=== PATIENT | female | born 1960 ===

== ENCOUNTER 2017-10-17 05:11 | Inpatient (IN) | payer OTHER ==
[~2017-10-17] VITALS: Ht 157.4 cm; Wt 58.2 kg
--- NOTE | ~2017-10-17 | PR ---
[place], [place] PROGRESS NOTE NAME: ABDULAZIZ SCOTT UNIT #: [id number] ROOM: 312 DOCTOR: VALERIA WELLINGTON MD BIRTHDATE: [birth year] DOS: 10/21/2017 CHIEF COMPLAINT: "I don't feel well. My stomach is bothering me." SUMMARY OF THE VISIT: The patient was interviewed in her room and then walked down the short with me. She continues to be depressed and reports poor sleep. She wakes up tired in the morning. She continues to be nihilistic and believes that she has HIV and that her family has kicked her out. Reality shows that the family states that she has had several HIV tests all have come back negative. Her test here just came back negative as well. Family also reports that she was not kicked out that rather she left on her own accord and began wandering the streets. She is not homeless like she states. This is all part of her nihilistic delusion. MENTAL STATUS: She is alert and oriented. She remains depressed with extreme nihilism and delusions. Memory is intact. PLAN: I will load her with Invega Sustenna 234 mg IM today and increase her Remeron from 15-22.5 mg at bedtime in order to further combat her depressive symptomatology. Engage in individual and myers milieu activity, returning to the least restrictive environment when stable. VALERIA WELLINGTON MD CM:PNTRANS [phone] VALERIA WELLINGTON MD 10/21/17 0950 interface
--- NOTE | ~2017-10-17 | DS ---
[place], [place] DISCHARGE SUMMARY [id number] UNIT #: [id number] ROOM: 312 DOCTOR: VALERIA WELLINGTON MD BIRTHDATE: [birth year] DOS: 10/29/2017 CHIEF COMPLAINT: "I have AIDS and I have been so depressed." HISTORY OF PRESENT ILLNESS: This is a 57-year-old white female who had initially presented to [facility] Emergency Room accompanied by police. The police apparently found the patient sitting in a ditch. She told the police that she was homeless and had nowhere to go. This she said was after an argument with her sister. She believed that because she has AIDS, her sister was fired from her job and she was now homeless and wandering the streets. The patient had reported to the police and later to the Emergency Room physicians that she has been increasingly depressed over the last several weeks with poor sleep and appetite, anergia, anhedonia, hopeless, helpless feelings, crying spells and inability to cope. Most recently, she has had suicidal plans to overdose or cut her wrist. [facility] did send her to the [facility] unit on an involuntary basis to receive further treatment and evaluation. PAST MEDICAL HISTORY: Remarkable for a long history of bipolar disorder, hyperlipidemia, hypertension and psoriasis. SUMMARY OF HOSPITAL COURSE: The patient was admitted to the unit where she was started on Remeron 15 mg at bedtime as well as Vraylar 1.5 mg at bedtime. However, given the severity of her psychotic symptoms, the Vraylar was discontinued and she was switched to Invega 6 mg in the morning. The patient tolerated these well and after several days of Invega 6 mg in the morning, she was loaded with Invega Sustenna 234 mg IM. The patient was also found to have a low vitamin D level upon admission of 14.1, so she was augmented with vitamin D 50,000 International Units weekly. We did test for HIV here and also reached out to the patient's sister. The patient's sister said that the patient has had several HIV tests, all have been negative. The HIV test done by [facility] likewise was negative. Despite attempting to confront the patient on this, she initially responded to these tests were wrong and that she knew she had AIDS. Gradually, as the Invega began to take hold this belief dissipated and totally left her. She did respond extremely well with Invega Sustenna and the Remeron, sleep and appetite normalized. She did become much more engaging in activities. The major part of her latter part of the stay was regarding housing. Initially, it was believed that the sister would take the patient back, but later the sister said that she was unable to and wanted us to seek out alternative placements. Because these alternative placements seem to all have a lengthy waiting list and the patient had improved sufficiently, it was decided to return the patient either to her sister briefly or to the [facility] [place]. MENTAL STATUS AT DISCHARGE: The patient was alert and oriented x 3. Mood was euthymic. Affect appropriate. There was no barbara or hypomania. Her delusional system had dissipated completely. Memory for the most part was fully intact. FINAL DIAGNOSES: Major depression, recurrent with psychotic features. [place], [place] DISCHARGE SUMMARY NAME: ABDULAZIZ SCOTT UNIT #: [id number] ROOM: [facility] DOCTOR: VALERIA WELLINGTON MD BIRTHDATE: [birth year] PLAN: All of her prescriptions have been e scribed to [facility] on [facility] in [place], except her vitamin D prescription which was printed and will be sent with her. She will have followup in the [place] area with her outpatient provider. VALERIA WELLINGTON MD CM:DISCHAGUILAR [id number] VALERIA WELLINGTON MD 10/29/17 1023 interface
--- NOTE | ~2017-10-17 | PR ---
[place], [place] PROGRESS NOTE NAME: ABDULAZIZ SCOTT UNIT #: [id number] ROOM: 312 DOCTOR: VALERIA WELLINGTON MD BIRTHDATE: [birth year] DOS: 10/23/2017 CHIEF COMPLAINT: "I still think I have AIDS." SUMMARY OF THE VISIT: The patient was interviewed as she was walking down the hallway. She engaged readily in conversation with me. She did appear somewhat brighter. She was very conversant and she was very engaging. She still reports that she believes she still has aids and she is not certain whether or not she will be able to be welcome in her sister's home. She to us reaching out to talk to her sister. She was somewhat hesitant because it was going to be a long distance call, but I did reassure her that we would be able to take care of this for her. Of note, she seems to be tolerating the medication regimen well. I see no sedation, somnolence, extrapyramidal symptoms or tardive dyskinesia. She is due for her secondary loading dose of Invega Sustenna on 10/24/2017. I will order her maintenance dose then to be given on 11/19/2017. MENTAL STATUS: She is alert and oriented. She does seem to be trending towards euthymia. Affect is more appropriate. She still remains delusional, but she is able to be moved a little bit and questions the validity of some of her thoughts. For the most part, memory is intact. PLAN: As mentioned previously, she will get her secondary loading dose of Invega Sustenna 156 mg on 10/24 and then thereafter receive her next dose of Invega Sustenna 156 mg on 11/19 and every 4 weeks thereafter. We will continue the Remeron at its current dose, engage in individual and myers milieu activity, returning to the least restrictive environment when psychiatrically stable. VALERIA WELLINGTON MD CM:PNTRANS 1019 VALERIA WELLINGTON MD 10/23/17 1017 interface
--- NOTE | ~2017-10-17 | PR ---
[place], [place] PROGRESS NOTE NAME: ABDULAZIZ SCOTT UNIT #: [id number] ROOM: 312 DOCTOR: VALERIA WELLINGTON MD BIRTHDATE: [birth year] DOS: 10/28/2017 CHIEF COMPLAINT: "I need to figure out where I am living. My sister does not want me back." SUMMARY OF THE VISIT: The patient was interviewed in the dining area. She engaged in very purposeful conversation. She was very fixated on finding a place to stay, stating that her sister has now voiced to both patient and our social sciences instructor that she does not want the patient back and prefers the patient to go either into a long term or to assisted living. She was very much fixated on what can be done along these lines. She convincingly denied any thoughts of having AIDS. There were no psychotic symptoms. There was no paranoia. She was very much engaging in normal conversation for the first time in her admission. She seemed to be tolerating the current medication regimen well. I see no sedation, somnolence, extrapyramidal symptoms or tardive dyskinesia. MENTAL STATUS: She is alert and oriented times 3. Mood is euthymic. Affect is appropriate. There is no barbara, hypomania or psychosis. Memory for the most part is intact. PLAN: I will maintain her current psychotropic regimen as she is getting benefits without side effects. I will go ahead and discuss the case with social research assistant to finalize discharge plans. At this point, if we are unable to find appropriate housing and the sister does not take the patient back, the patient will have to go back to the [facility]. VALERIA WELLINGTON MD CM:PNTRANS [id number] VALERIA WELLINGTON MD 10/28/17 1013 interface
--- NOTE | ~2017-10-17 | PR ---
[place], [place] PROGRESS NOTE NAME: ABDULAZIZ SCOTT UNIT #: [id number] ROOM: 312 DOCTOR: KEV HERNANDEZ MD BIRTHDATE: [birth year] DOS: 10/19/2017 SUBJECTIVE: The patient seen and spoke with the staff. Per staff, patient is doing better, but still depressed and suicidal. No behavioral problems or issues, medication compliant. The patient was pleasant and cooperative. She was in the day area. She came to talk with me in the interview room. She said that she is taking her medication and did not have any side effect. When I asked her how she is doing, she said that "so-so" "not good." She still believes that she got HIV and concerned about that. She reports good sleep and appetite. MENTAL STATUS EXAMINATION: The patient was pleasant and cooperative, described her mood as "so-so." Affect was constricted. Thought process goal directed. No flight of ideas, loosening of association. She denied auditory or visual hallucinations. She seems to be still delusional related with her HIV, but no other delusions noted. No other paranoia. She denied any suicidal ideation, intent or plan. She also denied any homicidal ideation, intent or plan. Insight and judgment poor to fair. ASSESSMENT: Major depressive disorder, recurrent, severe with questionable psychotic feature. PLAN: 1. Continue current medication and care. 2. Continue redirection. 3. Encourage activity and groups. 4. Pending lab results for human immunodeficiency virus. KEV HERNANDEZ MD CM:PNTRANS [id number] KEV HERNANDEZ MD 10/19/17 2318 interface
--- NOTE | ~2017-10-17 | PR ---
[place], [place] PROGRESS NOTE NAME: ABDULAZIZ SCOTT UNIT #: [id number] ROOM: 312 DOCTOR: KEV HERNANDEZ MD BIRTHDATE: [birth year] DOS: 10/26/2017 SUBJECTIVE: The patient seen and spoke with the staff. Per staff, the patient is doing better. No behavioral problems or issues. Social med compliant. The patient was pleasant and cooperative. She was in the day area. She reports doing well. She said that she has not spoke with his sister yet and does not know how she will get there. When I told her about her negative HIV test, she said that she knows about the results, but she will not believe it. MENTAL STATUS EXAMINATION: The patient was pleasant and cooperative. Described her mood as "good." Affect, mood congruent. Thought process goal directed. No flight of ideas, loosening of associations. She denied auditory or visual hallucination. She is still paranoid. She denied any suicidal ideation, intent or plan. She also denied homicidal ideation, intent or plan. Insight and judgment poor to fair. ASSESSMENT: Major depressive disorder, recurrent, severe with psychotic features. PLAN: 1. Continue current medication and care. 2. Continued redirection. 3. Encourage activity and groups. KEV HERNANDEZ MD CM:PNTRANS [phone] KEV HERNANDEZ MD 10/26/172254 interface
--- NOTE | ~2017-10-17 | PR ---
[place], [place] PROGRESS NOTE NAME: ABDULAZIZ SCOTT UNIT #: [id number] ROOM: 312 DOCTOR: VALERIA WELLINGTON MD BIRTHDATE: [birth year] DOS: 10/22/2017 CHIEF COMPLAINT: "I didn't sleep too well, although I have always had problems sleeping." SUMMARY OF THE VISIT: The patient was interviewed in the quiet room. She reported once again that she was having a significant sleep disturbance with difficulty falling asleep and maintaining sleep. She did report to me that she has been told that the HIV test came back negative. She questions the validity of this and still states that she thinks she has AIDS, although, you can tell that she now has the ability to question what reality is. We also discussed at length the possibility that she may be able to return to her sister's house to live there and she would like that very much and also the fact that her sister did not lose her job. These are all fixed beliefs that she had and they are all wavering slightly as she is beginning to question now whether or not this is reality or not. She did question why she received the Invega Sustenna and I reeducated her as to the purpose of the Invega Sustenna versus the oral Invega and she nodded in approval. MENTAL STATUS: She is alert and oriented. Mood does seem to be still depressed, but does seem to be trending towards euthymia. Affect is more appropriate. There is no barbara or hypomania. She still remains delusional, but is able to question the validity of these thoughts. There are no extrapyramidal symptoms or tardive dyskinesia. PLAN: I will order her secondary loading dose of Invega Sustenna 156 mg intramuscularly on 10/24/2017. At that point in time, I will also discontinue her oral Invega. Continue to engage in individual and myers milieu activity, returning to the least restrictive environment when stable. VALERIA WELLINGTON MD CM:PNTRANS [id number] VALERIA WELLINGTON MD 10/22/17 1002 interface
--- NOTE | ~2017-10-17 | PR ---
[place], [place] PROGRESS NOTE NAME: ABDULAZIZ SCOTT UNIT #: [id number] ROOM: 312 DOCTOR: VALERIA WELLINGTON MD BIRTHDATE: [birth year] DOS: 10/24/2017 CHIEF COMPLAINT: "I would like to talk to my sister; I think I am feeling better." SUMMARY OF THE VISIT: The patient was interviewed in the dining area. She had completed her breakfast and was sitting watching television. She engaged readily in conversation, reporting that she is feeling slightly better since she has had a chance to get used to the medicine. She is still somewhat concerned about having the injections and I tried to reassure her that ultimately the injections would be once a month and could ultimately go down to once every 3 months depending on her tolerance to the medicine. She does appear to be able to now question the validity of some of her delusional beliefs. She is tolerating the current medication regimen well and I see no sedation, somnolence, extrapyramidal symptoms or tardive dyskinesia. MENTAL STATUS: She is alert and oriented. Mood does seem to be trending towards euthymia. Affect is more appropriate. There is no barbara or hypomania. There are no overt auditory or visual hallucinations. The delusions do seem to be shaking somewhat. Memory for the most part is intact. PLAN: At this point, I will discontinue her oral Invega as she is receiving her secondary loading dose of the Invega Sustenna, continue to engage in individual and myers milieu activity with the plan to return to the least restrictive environment when psychiatrically stable. VALERIA WELLINGTON MD CM:PNTRANS [phone] VALERIA WELLINGTON MD 10/24/17 0904 interface
--- NOTE | ~2017-10-17 | PR ---
[place], [place] PROGRESS NOTE NAME: ABDULAZIZ SCOTT UNIT #: [id number] ROOM: 312 DOCTOR: KEV HERNANDEZ MD BIRTHDATE: [birth year] DOS: 10/25/2017 SUBJECTIVE: The patient seen and spoke with the staff. Per staff, the patient is doing well. No behavior problems or issues, medication compliant, slept well. No other concern. The patient was pleasant, cooperative. She is in her room on the bed. She said that she is feeling better with the current medications, she slept well and did not have any side effect from the medication. She reports good appetite. Denied hopelessness or other neurovegetative signs and symptoms of depression. MENTAL STATUS EXAMINATION: Pleasant, cooperative. Described her mood as "better." Affect, mood congruent. Thought process goal directed. No flight of ideas, loosening of association. She denied auditory or visual hallucination. No delusion or paranoia noted. She denied suicidal ideation, intent or plan. She also denied homicidal ideation, intent or plan. PLAN: 1. Continue current medication and care. 2. Continue redirection. 3. Supportive care. KEV HERNANDEZ MD CM:PNXI [id number] KEV HERNANDEZ MD 10/26/17 0012 interface
--- NOTE | ~2017-10-17 | PR ---
[place], [place] PROGRESS NOTE NAME: ABDULAZIZ SCOTT UNIT #: [id number] ROOM: 312 DOCTOR: KEV HERNANDEZ MD BIRTHDATE: [birth year] DOS: 10/27/2017 The patient was seen and spoke with the staff. Per staff, the patient is doing well. No behavioral problems or issues. Compliant with her medication. The patient was pleasant and cooperative. She said that she "could be better." She mentioned that she still do not believe that she do not have HIV, even though the tests were all within normal limit. She said that she cannot go back with her sister. I mentioned that her sister may not want her in her place. She reported good sleep and appetite. MENTAL STATUS EXAMINATION: The patient was pleasant and cooperative. Described her mood as "could be better." Affect, mood congruent. Thought process goal directed. No flight of ideas, loosening of association. She denied auditory or visual hallucinations. She is still delusional and some paranoia, but denied any suicidal ideation, intent or plan. She also denied any homicidal ideation, intent or plan. Insight and judgment is poor to fair. PLAN: 1. Continue current medication and care. 2. Continue redirection. 3. Supportive care. 4. Final medication, management, and discharge plan by the regular team. KEV HERNANDEZ MD CM:PNTRANS [phone] KEV HERNANDEZ MD 10/27/172227 interface
--- NOTE | ~2017-10-17 | WRIGHTHP ---
[place], [place] PATIENT HISTORY AND PHYSICAL EXAM NAME: ABDULAZIZ SCOTT UNIT #: [id number] ROOM: 312 DOCTOR: VALERIA WELLINGTON MD BIRTHDATE: [birth year] DOS: 10/18/2017 INITIAL PSYCHIATRIC EVALUATION CHIEF COMPLAINT: "I have AIDS and I have been just so depressed." HISTORY OF PRESENT ILLNESS: This is a 57-year-old white female who had initially presented to [facility] Emergency Room accompanied by the police. The patient was found by the police sitting in a ditch. She told the police that she was homeless and had nowhere to go. This was after an argument with her sister, supposedly over the fact that the patient has AIDS and could no longer live with the sister. The patient reports that she has been increasingly depressed with poor sleep and appetite, anergia, anhedonia, hopeless, helpless feelings, crying spells and inability to cope. Most recently, she has been actively suicidal with a plan to overdose or cut her wrist. She was sent by [facility] here on an involuntary basis to receive further treatment and evaluation. PAST MEDICAL HISTORY: Remarkable for supposedly a long history of bipolar disorder, hypercholesterolemia, hypertension and a history of psoriasis. MENTAL STATUS: Upon admission, the patient is alert and oriented. Mood is overwhelmingly depressed. It is unclear whether or not this belief that she has AIDS is rational and real versus some type of nihilistic delusion. It certainly comes across as being very delusional. She is very negative and very down. There is no hypomania or barbara noted. Memory for the most part is intact. DIAGNOSES: Major depression, recurrent, rule out with psychotic features, rule out bipolar disorder. PLAN: I have already started her on Remeron 15 mg at bedtime as an antidepressant. I initially had started her on Vraylar at bedtime. I will switch that to Invega 6 mg in the morning as a more potent antipsychotic. Screening examinations upon admission show her to have a low vitamin D level of 14.1. I will augment with vitamin D 50,000 International Units weekly, engage her in individual and myers milieu activity, returning to the least restrictive environment when stable. [place], [place] PATIENT HISTORY AND PHYSICAL EXAM NAME: ABDULAZIZ SCOTT UNIT #: [id number] ROOM: [facility] DOCTOR: VALERIA WELLINGTON MD BIRTHDATE: [birth year] VALERIA WELLINGTON MD CM:HISPHYS:PATIENT HISTORY AND PHYSICAL EXAMINATION 1 VALERIA WELLINGTON MD 10/18/17 0933 interface
--- NOTE | ~2017-10-17 | PR ---
[place], [place] PROGRESS NOTE NAME: ABDULAZIZ SCOTT UNIT #: [id number] ROOM: 312 DOCTOR: KEV HERNANDEZ MD BIRTHDATE: [birth year] DOS: 10/20/2017 SUBJECTIVE: The patient seen and spoke with the staff. Per staff, the patient slept well last night. No behavior problems or issues. Medication compliant. Still paranoid about her having HIV. The patient was in the day area. She came out to spoke with me. She said that she is still depressed and she has difficult time focusing. She still believes that she had HIV, but she was not as adamant about it. She denied any thoughts of harming herself. MENTAL STATUS EXAMINATION: Pleasant and cooperative. Described her mood as "down." Affect was constricted. Thought process goal directed. No flight of ideas, loosening of association. She denied auditory or visual hallucinations. She seems to be paranoid. No other delusions are noted. She denied suicidal ideation, intent or plan. She also denied homicidal ideation, intent or plan. PLAN: 1. Continue current medication and care. 2. Continue redirection. 3. Encouraged activity and groups. KEV HERNANDEZ MD CM:PNTRANS 45 [phone] KEV HERNANDEZ MD 10/20/172100 interface
[2017-10-17] MEDS ORDERED: RISPERDAL2 M1 PO (05:42)
[2017-10-17] MEDS ORDERED: TRAZODONE50 MG PO (05:42)
[2017-10-17] MEDS ORDERED: LIPITOR20 MG PO (05:43)
[2017-10-17] MEDS ORDERED: SORIATANE10 MG PO (05:45)
[2017-10-17] MEDS ORDERED: KENALOG 0.1%80 GM T (05:45)
[2017-10-17 12:58] VITALS: BP 100/68
[2017-10-17 14:52] LABS: BILIRUBIN NEGATIVE (NEGATIVE); BLOOD NEGATIVE (NEGATIVE); CLARITY CLEAR (CLEAR); COLOR YELLOW (YELLOW); GLUCOSE NEGATIVE (NEGATIVE); KETONE TRACE (NEGATIVE); LEUKO ESTERASE NEGATIVE (NEGATIVE); NITRITE NEGATIVE (NEGATIVE); PH 5.5 (5.0-9.0); SPECIFIC GRAVITY <= 1.005 (1.005-1.030); UROBILINOGEN 0.2 E.U./dl (0.2-1.0)
[2017-10-17 15:04] LABS: BACTERIA 2+; RBC 0-2 rbc/hpf (0-2); WBC 0-2 wbc/hpf (0-5)
[2017-10-17 19:45] VITALS: BP 112/60
[2017-10-18 06:50] LABS: BASO % 0.3 % (0.0-1.0); EOS # 0.1 10*3/uL (0.0-0.4); EOS % 1.5 % (1.0-4.0); HEMATOCRIT 43.7 % (37.0-47.0); HEMOGLOBIN 14.4 g/dl (12.0-16.0); LYMPH # 1.8 10*3/uL (1.3-4.4); LYMPH % 26.7 % (27.0-41.0); MEAN CELL VOLUME 91.8 fl (81.0-99.0); MEAN CORPUSCULAR HGB 30.3 pg (27.0-31.0); MEAN PLATELET VOLUME 9.7 fl (9.6-12.3); MONO # 0.7 10*3/uL (0.1-1.0); MONO % 10.8 % (3.0-9.0); NEUT # 4.1 10*3/uL (2.3-7.9); NEUT % 60.4 % (47.0-73.0); PLATELET COUNT AUTOMATED 249 10*3/uL (130-400); RED BLOOD COUNT 4.76 10*6/uL (4.10-5.10); RED CELL DISTRI WIDTH 12.6 % (0-14.5); WHITE BLOOD COUNT 6.8 10*3/uL (4.8-10.8)
[2017-10-18 07:20] LABS: CHLORIDE 106 mmol/L (98-107); POTASSIUM 4.2 mmol/L (3.5-5.1); SODIUM 141 mmol/L (136-145)
[2017-10-18 07:33] VITALS: BP 121/63
[2017-10-18 07:36] LABS: ALBUMIN 3.4 gm/dl (3.1-4.5); ALKALINE PHOSPHATASE 65 U/L (45-117); BUN 18 mg/dl (7-24); CHOLESTEROL 116 mg/dL (<200); CREATININE 0.81 mg/dL (0.55-1.02); HDL CHOLESTEROL 54 mg/dl (40-60); LDL CHOLESTEROL 45 mg/dL (9-159); SGOT/AST 17 IU/L (3-35); SGPT/ALT 16 U/L (12-78); TOTAL PROTEIN 6.8 gm/dL (6.4-8.2); TRIGLYCERIDES 84 mg/dl (<150); VLDL CHOLESTEROL 17 mg/dL (6-40)
[2017-10-18 08:02] LABS: VITAMIN D, 25-HYDROXY 14.1 ng/mL (30-100)
[2017-10-18 20:02] VITALS: BP 122/70
[2017-10-19 06:08] LABS: HIV 1+2 AB + HIV1 P24 AG Non Reactive (Non Reactive)
[2017-10-19 08:34] VITALS: BP 115/67
[2017-10-19 20:25] VITALS: BP 120/68
[2017-10-20 07:48] VITALS: BP 109/62
[2017-10-20 20:00] VITALS: BP 110/61
[2017-10-21 07:36] VITALS: BP 109/54
[2017-10-21 20:33] VITALS: BP 132/70
[2017-10-22 07:26] VITALS: BP 103/63
[2017-10-22 20:00] VITALS: BP 114/68
[2017-10-23 07:14] VITALS: BP 112/65
[2017-10-23 19:59] VITALS: BP 112/60
[2017-10-24 08:49] VITALS: BP 117/83
[2017-10-24 20:00] VITALS: BP 110/69
[2017-10-25 09:31] VITALS: BP 101/64
[2017-10-25 20:08] VITALS: BP 101/60
[2017-10-26 08:03] VITALS: BP 100/67
[2017-10-26 20:00] VITALS: BP 112/68
[2017-10-27 08:04] VITALS: BP 122/60
[2017-10-27 20:13] VITALS: BP 110/64
[2017-10-28 08:47] VITALS: BP 115/68
[2017-10-28 20:13] VITALS: BP 115/74
[2017-10-29 08:12] VITALS: BP 104/56
[2017-10-29] MEDS ORDERED: INVEGA SUSTENN156 MG IM (10:02)
[2017-10-29] MEDS ORDERED: Vitamin D PO (10:02)
[2017-10-29] MEDS ORDERED: MIRTAZAPINE45 MG PO (10:02)
== END 2017-10-29 16:47 | disposition home or self-care (01) | DRG 885 ==
LOC: 3N 05:11
PROVIDERS: Family Medicine; Psychiatry & Neurology Psychiatry
DX: F33.3 Major depressive disorder, recurrent, severe with psychotic symptoms (principal); F23 Brief psychotic disorder; E78.00 Pure hypercholesterolemia, unspecified; E78.5 Hyperlipidemia, unspecified; I10 Essential (primary) hypertension; Z59.0 Homelessness; Q82.8 Other specified congenital malformations of skin; Z87.891 Personal history of nicotine dependence; Z90.49 Acquired absence of other specified parts of digestive tract; Z98.51 Tubal ligation status; Z88.8 Allergy status to other drugs, medicaments and biological substances; Z88.1 Allergy status to other antibiotic agents; Z88.5 Allergy status to narcotic agent; Z79.899 Other long term (current) drug therapy; L40.9 Psoriasis, unspecified